=== PATIENT | female | born 1995 | race Caucasian/White ===

== ENCOUNTER 2018-01-28 10:33 | Emergency (ER) | payer OTHER ==
[~2018-01-28] VITALS: Ht 152.4 cm; Wt 72.6 kg
[~2018-01-28 10:33] MED LIST: LO LOESTRIN FE1 TAB PO; ZOFRAN ODT4 MG PO
[2018-01-28 11:04] VITALS: BP 136/91
[2018-01-28] MEDS ORDERED: LO LOESTRIN FE1 EACH PO (11:28)
--- NOTE | 2018-01-28 11:33 | ED CARDIAC/CP/PALPITATIONS ---
History of Present Illness General Chief Complaint: Chest Pain Stated Complaint: CP, RADIATES TO BACK, X 5 DAYS Source: patient Exam Limitations: no limitations Vital Signs & Intake/Output Vital Signs & Intake/Output Vital Signs Date Time Temp Pulse Resp B/P B/P Pulse O2 O2 Flow FiO2 Mean Ox Delivery Rate 01/28 1126 97 Room Air 01/28 1104 97.6 98 18 136/91 99 Room Air Room Air Allergies Coded Allergies: naproxen (From ALEVE) (Severe, LARYNGEAL EDEMA 01/24/16) Reconcile Medications Norethindrone-E.estradiol-Iron (Lo Loestrin Fe 1-10 Tablet) 1MG-10(24) TABLET 1 TAB PO DAILY CONTROL (Reported) Triage Note: PT TO ED WITH C/O CHEST PAIN RADIATING TO BACK X 1 WEEK, "CONSTANT BUT NO WORSE". ALSO C/O NAUSEA, PT CURRENTLY ON THE PILL, "HAD SPOTTING LAST WEEK". Triage Nurses Notes Reviewed? yes Onset: Abrupt Duration: day(s): (5), constant Timing: recent history Quality/Severity: moderate, sharp Location: substernal (left chest) Radiation: back Activities at Onset: none : No Patient currently breastfeeds: No HPI: 22-year-old female comes into the emergency room with complains of left-sided chest pain going on for the past 4-5 days. Constant and worse with a deep breath. Pain radiates to her back. Pain is worse when lying flat. She is on control. She denies any trauma. Denies any prior history of this. Denies any other associated symptoms. He comes in for further evaluation. Past History Travel History Traveled to [place] past 21 day No Medical History Any Pertinent Medical History? see below for history Neurological: NONE EENT: NONE Cardiovascular: NONE Respiratory: NONE Gastrointestinal: NONE Hepatic: NONE Renal: NONE Musculoskeletal: NONE Psychiatric: NONE Endocrine: NONE Blood Disorders: NONE Cancer(s): NONE [employer]/Reproductive: NONE Surgical History Surgical History: N Psychosocial History What is your primary language Ug[place]an Tobacco Use: Never used ETOH Use: occasional use Illicit Drug Use: denies illicit drug use Family History Hx Contributory? No Review of Systems Review of Systems Constitutional: Reports: no symptoms. EENTM: Reports: no symptoms. Respiratory: Reports: see HPI. Cardiovascular: Reports: see HPI. GI: Reports: no symptoms. Genitourinary: Reports: no symptoms. Musculoskeletal: Reports: no symptoms. Skin: Reports: no symptoms. Neurological/Psychological: Reports: no symptoms. Hematologic/Endocrine: Reports: no symptoms. Immunologic/Allergic: Reports: no symptoms. All Other Systems: Reviewed and Negative Physical Exam Physical Exam General Appearance: well developed/nourished, alert, awake Head: atraumatic Eyes: Bilateral: normal appearance. Ears, Nose, Throat: normal ENT inspection, hearing grossly normal Neck: normal inspection Respiratory: normal breath sounds, no respiratory distress Cardiovascular: regular rate/rhythm, tachycardia Back: normal inspection Extremities: normal inspection Neurologic/Psych: awake, alert, oriented x 3 Skin: intact, normal color Core Measures ACS in differential dx? No CVA/TIA Diagnosis No Sepsis Present: No Sepsis Focused Exam Completed? No Progress Differential Diagnosis: AMI, costochondritis, hyperthyroid, musculoskeletal pain , myocarditis, pancreatitis, pericarditis, pneumonia, pneumothorax, pulmonary embolism, PUD/GERD, pLEURISY Plan of Care: Orders Procedure Date/time Status Telemetry/Die Sinker 01/28 1133 Active TROPONIN LEVEL 01/28 1133 Complete D-DIMER 01/28 1133 Complete COMPREHENSIVE METABOLIC PANEL 01/28 1133 Complete CBC WITHOUT DIFFERENTIAL 01/28 1133 Complete URINE 01/28 1107 Complete EKG 01/28 1038 Active Laboratory Tests 01/28/18 1142: Anion Gap 18 H, Estimated GFR > 60, BUN/Creatinine Ratio 12.2, Glucose 98, Calcium 9.9, Total Bilirubin 0.7, AST 18, ALT 14, Alkaline Phosphatase 62, Troponin I < 0.01, Total Protein 9.0 H, Albumin 5.1 H, Globulin 3.9, Albumin/ Globulin Ratio 1.3, D-Dimer High Sensitivty < 200, CBC w Diff NO MAN DIFF REQ, RBC 5.11, MCV 85.8, MCH 28.5, MCHC 33.2, RDW 13.0, MPV 8.2, Gran % 57.2, Lymphocytes % 33.0, Monocytes % 8.0, Eosinophils % 1.1, Basophils % 0.7, Absolute Granulocytes 4.0, Absolute Lymphocytes 2.3, Absolute Monocytes 0.6, Absolute Eosinophils 0.1, Absolute Basophils 0 01/28/18 1128: Urine Test NEGATIVE Diagnostic Imaging: Viewed by Me: Radiology Read. Discussed w/RAD: Radiology Read. Radiology Impression: PATIENT: MATT IBANEZ PRESENT AGE: 22 PATIENT ACCOUNT NO: [id number] : 96 LOCATION: [facility] ORDERING PHYSICIAN: Kirk CRANDALL SERVICE DATE: 01/28/18 EXAM TYPE: RAD - XRY-CHEST XRAY, TWO VIEWS EXAMINATION: XR CHEST CLINICAL INFORMATION: Chest pain COMPARISON: None TECHNIQUE: 2 views of the chest were obtained. FINDINGS: No significant abnormality is noted involving the heart, lungs, mediastinum, bony thorax or soft tissues. IMPRESSION: Unremarkable examination. DICTATED BY: Govind Solorzano MD DATE/TIME DICTATED:01/28/181323 DIRECTOR FUNERAL: LISA DATE/TIME TRANSCRIBED:01/28/181323 CONFIDENTIAL, DO NOT COPY WITHOUT APPROPRIATE AUTHORIZATION. <Electronically signed in Other Vendor System> SIGNED BY: Govind Solorzano MD 01/28/181326 Initial ED EKG: normal sinus rhythm, rate (86) Comments: 01/28/2018 1:45:10 PM Patient clinically looks well. Patient is in no apparent distress. Patient is nontoxic-appearing. Low suspicion for pulmonary embolism. D-dimer negative. Pain is pleuritic. Could be consistent with costochondritis versus pleurisy. Follow-up with PCP. Return if any other concerns. Understands and agrees with plan of care. CASE DISCUSSED WITH DR NICHOLS. Departure Departure Disposition: HOME OR SELF CARE Condition: Stable Clinical Impression Primary Impression: Pleuritic chest pain Referrals: Gabriela HUFF,Renny Krishnan (PCP/Family) Additional Instructions: Take Advil 800 mg at home 3 times a day. Follow-up with your primary care doctor. Return if any concerns worsening symptoms. Please go over all results of today's visit with your primary care doctor. Contact your primary care doctor to let them know you were here in the emergency room. There may be nonspecific findings which may not be related to your visit today here in the emergency room but may require further evaluation and chronic monitoring by your primary care doctor. If you had a laceration today the chance of foreign body always remains. You should follow-up with your primary care doctor for recheck in 3-5 days for a wound check. If you had an x-ray done there is a chance that a fracture could have been missed on initial read and you should follow-up with your primary care doctor for repeat x-rays if symptoms persist. If your blood pressure was elevated here in the emergency room please have rechecked by john primary care doctor within the next 48. If you were prescribed a narcotic here in the emergency room or any type of controlled substances you're not allowed to drive while taking this medication or operate any type of heavy machinery. Narcotics can make you feel lightheaded dizziness nausea and can cause constipation. You may need to bulk picker a stool softener. Thank you for choosing [facility] emergency room. Please return to the emergency room immediately if you have any other concerns worsening of symptoms. Departure Forms: Customer Survey General Discharge Information Critical Care Note Critical Care Note Critical Care Time: non-applicable
[2018-01-28 11:56] LABS: ABSOLUTE BASOPHIL COUNT 0 /CUMM (0.0-0.2); ABSOLUTE EOSINOPHIL COUNT 0.1 /CUMM (0.0-0.7); ABSOLUTE LYMPH COUNT 2.3 /CUMM (1.2-3.4); ABSOLUTE MONOCYTE COUNT 0.6 /CUMM (0.10-0.60); BASOPHIL % 0.7 % (0.0-2.0); EOSINOPHIL % 1.1 % (0-5); GRANULOCYTE % 57.2 % (42.2-75.2); HEMATOCRIT 43.8 % (37-47); MEAN CORPUSCULAR HGB 28.5 PG (27.0-31.0); MEAN CORPUSCULAR HGB CONC 33.2 G/DL (33.0-37.0); MEAN CORPUSCULAR VOLUME 85.8 FL (81.0-99.0); MEAN PLATELET VOLUME 8.2 FL (7.4-10.4); PLATELET COUNT 280 /CUMM (130-400); RED BLOOD CELL CT 5.11 /CUMM (4.20-5.40)
--- NOTE | 2018-01-28 13:27 | RADIOLOGY REPORT ---
EXAMINATION: XR CHEST CLINICAL INFORMATION: Chest pain COMPARISON: None TECHNIQUE: 2 views of the chest were obtained. FINDINGS: No significant abnormality is noted involving the heart, lungs, mediastinum, bony thorax or soft tissues. IMPRESSION: Unremarkable examination.
== END 2018-01-28 13:53 ==
LOC: ERH 10:33
PROVIDERS: Physician Assistant Medical
DX: R07.89 Other chest pain (principal)
CPT/HCPCS: 71046; 81025; 93005; 93010